=== PATIENT | female | born 1950 | race Hispanic/Latino ===

== ENCOUNTER 2018-04-09 16:22 | Emergency (ER) | payer OTHER, MEDICARE ==
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
[2018-04-09 17:32] VITALS: RESP 18; TEMP 98.1; O2SAT 100
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
[2018-04-09 21:28] VITALS: BP 187/82; PULSE 90
--- NOTE | 2018-04-10 08:43 | RAD ---
PROCEDURE: Left Knee Radiographs. HISTORY: Pain. COMPARISON: None. FINDINGS: BONES: There is irregular cortical lucency appreciated at the lateral tibial plateau questionably extending inferiorly. Unless there is a prior history of fracture of the proximal left tibia, follow-up CT or MRI of the left knee is advised to exclude potential nondisplaced fracture of the lateral tibial plateau. JOINTS: Dose trace narrowing, cortical sclerosis and occasional marginal osteophyte development is appreciated in all 3 compartments compatible with relatively advanced osteoarthritis. JOINT EFFUSION: Mild suprapatellar bursa effusion identified. OTHER FINDINGS: None. IMPRESSION: Questionable lateral tibial plateau fracture without displacement. Mild suprapatellar bursa effusion. Follow-up MRI or CT is advised unless there is a prior history of fracture of the left lateral tibial plateau resulting in limited residual deformity. Mild suprapatellar bursa effusion identified.
== END 2018-04-09 18:22 | disposition home or self-care (01) ==
LOC: ED 16:22
DX: Z04.1 Encounter for examination and observation following transport accident (principal); V03.00XA Pedestrian on foot injured in collision with car, pick-up truck or van in nontraffic accident, initial encounter; Y92.410 Unspecified street and highway as the place of occurrence of the external cause